=== PATIENT | male | born 1940 | race Caucasian/White ===

== ENCOUNTER 2020-01-31 10:44 | Observation (INO) | payer BC ==
[~2020-01-31] VITALS: Ht 175.3 cm; Wt 108.9 kg
[~2020-01-31 10:44] MED LIST: ACET325 PO; AMIO200 PO; AMLO5 PO; ASPI81EC PO; Aspirin EC81 MG PO; CLOP75 PO; INSULANPEN SC; METF500C; METO100ER PO; NOVOLOG FL100 UNIT/3 SC; PANT40 PO; ROSU10TA PO; VALS80; VALS80 PO; WARF5
[2020-01-31 11:22] LABS: BASOPHILS ABSOLUTE AUTO 0.04 K/mm3 (0.00-0.23); BASOPHILS PERCENT AUTO 1 % (0-2); EOSINOPHILS ABSOLUTE AUTO 0.09 K/mm3 (0.00-0.68); EOSINOPHILS PERCENT AUTO 2 % (0-6); Hematocrit 39.4 % (37.0-53.0); Hemoglobin 12.1 g/dL (13.5-17.5); IMMATURE GRAN ABSOLUTE AUTO 0.02 K/mm3 (0.00-0.10); IMMATURE GRAN PERCENT AUTO 0 % (0-1); LYMPHOCYTES PERCENT AUTO 11 % (21-46); MONOCYTES ABSOLUTE AUTO 0.37 K/mm3 (0.16-1.47); MONOCYTES PERCENT AUTO 8 % (4-13); Mean Corpuscular HGB 31.8 pg (26.0-34.0); Mean Corpuscular HGB Conc 30.7 g/dL (31.5-36.5); Mean Corpuscular Volume 104 fL (80-100); Mean Platelet Volume 10.8 fL (9.1-12.4); NEUTROPHILS ABSOLUTE AUTO 3.56 K/mm3 (1.96-9.15); NEUTROPHILS PERCENT AUTO 78 % (41-73); Platelet Count 144 K/mm3 (150-400); RDW Coefficient Variation 16.5 % (11.7-14.2); RDW Standard Deviation 62.5 fL (35.1-46.3); White Blood Cell Count 4.58 K/mm3 (4.00-11.30)
[2020-01-31 11:36] LABS: Magnesium, Blood 1.9 mg/dL (1.6-2.4)
[2020-01-31 11:38] LABS: Troponin I 0.061 ng/mL (0.000-0.040)
[2020-01-31 11:39] LABS: Albumin, Blood 2.6 g/dL (3.4-5.0); Albumin/Globulin Ratio 0.7 (0.8-1.8); Bilirubin, Total 0.5 mg/dL (0.1-1.0); Bun/Creatinine Ratio 15.2 (12.0-20.0); Calcium, Blood 8.5 mg/dL (8.5-10.1); Creatinine, Blood 2.1 mg/dL (0.60-1.20); Globulin, Blood 3.8 g/dL (2.2-4.0); Phosphorus, Blood 4.7 mg/dL (2.5-4.9); Potassium, Blood 3.6 mmol/L (3.5-5.5); Total Protein, Blood 6.4 g/dL (6.4-8.2)
[2020-01-31] MEDS ORDERED: CARVEDILOL6.25 MG PO (11:45)
[2020-01-31] MEDS ORDERED: METFORMIN HCL500 M3 PO (11:46)
[2020-01-31] MEDS ORDERED: ENTRESTO 97 MG1 EAC3 PO (11:46)
[2020-01-31] MEDS ORDERED: ROSUVASTATIN CA20 MG PO (11:46)
[2020-01-31 12:36] LABS: Influenza A, PCR Negative (NEGATIVE); Influenza B, PCR Negative (NEGATIVE); Resp Syncytial Virus, PCR Negative (NEGATIVE); SARS-Cov-2 (COVID-19) PCR, MMC Negative (NEGATIVE)
--- NOTE | 2020-01-31 14:31 | NUR ---
Spoke with Hospitalist Abhay and discussed case. Pt being admitted and will be placed on comfort care. Pt is bed bound and requires full care from stroke in the past. Pt has significant medical history including CAD, severe pleural effusion with colapsed lung. Pt and family are in agreement for comfort care only. Pt resting on gurny upon arrival. Son Ruy at bedside. Pt recently received Roxanol with Pt reporting good effect. Engaged in therapeutic listening, answered questions and validated concerns. Son Ruy tearful at times and this RN offered emotional support. Confirmed wishes for comfort care with Pt and son. Jerry Redmond reports other son is on his way from [place]. Discussed medications including considering D/C of dextrose. Ruy reports plan to D/C dextrose when Pt's other son arrives. Continued therapeutic listening. Ruy reports Pt has reached a point to where family is no longer able to provide adequate caregiving support for Pt. Pt's spouse is elder and frail with most of family living out of town. Continued therapeutic listening and answered questions. Palliative Care will remain available for symptom management and supportive visits.
--- NOTE | 2020-01-31 16:23 | NUR ---
Received call from Bedside RN Dian reporting family would like to D/C dextrose. Called and spoke with hospitalist Abhay. D/C dextrose per V/O from Abhay. Pt resting in bed upon arrival. Pt appears mildy anxious. Offered therapeutic listening and answered questions. Family expresses appreciation of visit and report no concerns at this time. Palliative Care will remain available.
--- NOTE | 2020-01-31 17:05 | NUR ---
PATIENT AT 1650, VERIFIED BY 2 RN'S BY [address]. [address]. CROWDER WAS NOTIFIED. FAMILY AT BEDSIDE, SPOUSE JORGE HAS CHOSEN ANGIE[facility]S HOME IN [place]. CHARGE NURSE SRAVANTHI NOTIFIED.
--- NOTE | 2020-01-31 17:28 | NUR ---
Initial spiritual care note: Per palliative care RN request, I met with pt's son, Ruy outside of room. Faciliated reminising and provided anticipatory bereavement counseling. I then met with Brian at bedside. He was quite frail and told me he preferred to "pray in my own way." I offered recreational counselor and comfort. I was just infomred that Brian and family has requested privacy. I will remain available.
== END 2020-01-31 16:50 ==
LOC: ER 10:44 → MEDS 10:45
PROVIDERS: Emergency Medicine; ADMIT Internal Medicine
DX: E11.641 Type 2 diabetes mellitus with hypoglycemia with coma (principal); I50.43 Acute on chronic combined systolic (congestive) and diastolic (congestive) heart failure; J18.8 Other pneumonia, unspecified organism; N17.9 Acute kidney failure, unspecified; I25.10 Atherosclerotic heart disease of native coronary artery without angina pectoris; J98.19 Other pulmonary collapse; J90 Pleural effusion, not elsewhere classified; I21.A1 Myocardial infarction type 2; Z86.73 Personal history of transient ischemic attack (TIA), and cerebral infarction without residual deficits; Z79.82 Long term (current) use of aspirin; Z79.4 Long term (current) use of insulin; Z79.899 Other long term (current) drug therapy; Z88.8 Allergy status to other drugs, medicaments and biological substances; Z91.018 Allergy to other foods; Z20.828 Contact with and (suspected) exposure to other viral communicable diseases; Z87.891 Personal history of nicotine dependence; I95.9 Hypotension, unspecified
CPT/HCPCS: 0241U; 36415; 71045; 80053; 82947; 83605; 83735; 83880; 84100; 84484; 85025; 87040; 93005; 93010; 94640; 96361; 96374; 96375; 99285-25; G0378; J0696; J0780; J2405; J7060; J7120